=== PATIENT | female | born 1955 | race Caucasian/White ===

== ENCOUNTER 2023-08-12 08:51 | Day surgery (SDC) | payer MEDICARE ==
[2023-08-12] MEDS ORDERED: Epinephrine Preservative Free 1 MG/ML IJ ONE (08:52)
[2023-08-12] MEDS ORDERED: cefUROXime sodium 0.005 GM in Sodium Chloride Flush 30 ML*** 0.5 ML IJ ONE (09:00)
[2023-08-12] MEDS ORDERED: TETRACAINE 0.5% STERI-UNIT SOL OP ONE (09:00)
[2023-08-12] MEDS ORDERED: Ak-Dilate OPHTHALMIC*** 1.065 ML, Cyclogyl 1% OPHTH SOL 1.065 ML, GATIFLOXACIN 0.5% OPH... OP ONE ×4 (09:00)
[2023-08-12] MEDS ORDERED: BETADINE 5% OPHTHALMIC 30 ML OP ONE (09:00)
[2023-08-12] MEDS ORDERED: Lactated Ringers 1,000 ML IV SCH (09:00)
[2023-08-12] MEDS ORDERED: NON-FORMULARY ITEM OP ONE (09:00)
[2023-08-12] MEDS ORDERED: Lactated Ringers 1,000 ML IV ONE (09:27)
[2023-08-12] MEDS: TETRACAINE 0.5% STERI-UNIT SOL OP ONE ×2 (09:53→10:22)
[2023-08-12] MEDS ORDERED: ACETAZOLAMIDE 250 MG TABLET PO ONE (11:00)
[2023-08-12] MEDS ORDERED: Zofran 4 MG/2 ML VIAL IV PRN (11:00)
[2023-08-12] MEDS ORDERED: SUBLIMAZE 100 MCG/2 ML ONE (11:24)
[2023-08-12] MEDS ORDERED: Versed 2 MG/2 ML Injection ONE (11:24)
[2023-08-12] MEDS ORDERED: DIPRIVAN 200 MG/20 ML IV ONE (11:29)
[2023-08-12 11:52] VITALS: RESP 16
[2023-08-12 11:57] VITALS: BP 135/73; PULSE 88; TEMP 99.4; O2SAT 100
== END 2023-08-12 12:06 | disposition home or self-care (01) ==
LOC: SDC 08:51
PROVIDERS: ATTEND Ophthalmology
DX: H25.812 Combined forms of age-related cataract, left eye (principal)
CPT/HCPCS: C1780; J0171; J2250; J2704; J3010; A9270-GY

== ENCOUNTER 2023-09-11 07:18 | Day surgery (SDC) | payer MEDICARE ==
[~2023-09-11 07:18] MED LIST: Ak-Dilate OPHTHALMIC*** 1.065 ML, Cyclogyl 1% OPHTH SOL 1.065 ML, GATIFLOXACIN 0.5% OPH... OP ONE; BETADINE 5% OPHTHALMIC 30 ML OP ONE; Lactated Ringers 1,000 ML IV SCH; NON-FORMULARY ITEM OP ONE; TETRACAINE 0.5% STERI-UNIT SOL OP ONE; cefUROXime sodium 0.005 GM in Sodium Chloride Flush 30 ML*** 0.5 ML IJ ONE
[2023-09-11] MEDS ORDERED: Lactated Ringers 1,000 ML IV ONE (07:32)
[2023-09-11 07:56] VITALS: RESP 18
[2023-09-11] MEDS ORDERED: Epinephrine Preservative Free 1 MG/ML IJ ONE (09:00)
[2023-09-11] MEDS ORDERED: Zofran 4 MG/2 ML VIAL IV PRN (09:00)
[2023-09-11] MEDS ORDERED: ACETAZOLAMIDE 250 MG TABLET PO ONE (09:00)
[2023-09-11] MEDS ORDERED: Versed 2 MG/2 ML Injection ONE (09:57)
[2023-09-11] MEDS ORDERED: SUBLIMAZE 100 MCG/2 ML ONE (09:57)
[2023-09-11] MEDS ORDERED: DIPRIVAN 200 MG/20 ML IV ONE (09:57)
[2023-09-11 10:37] VITALS: TEMP 97; O2SAT 99
[2023-09-11 10:41] VITALS: BP 117/83; PULSE 96
== END 2023-09-11 10:45 | disposition home or self-care (01) ==
LOC: SDC 07:18
PROVIDERS: ATTEND Ophthalmology
DX: H25.811 Combined forms of age-related cataract, right eye (principal)
CPT/HCPCS: C1780; J0171; J2250; J2704; J3010; A9270-GY

== ENCOUNTER 2024-04-21 11:26 | Emergency (ER) | payer MEDICARE ==
--- NOTE | 2024-04-21 11:35 | ERPHSYRPT ---
- History of Present Illness Time Seen by Provider: 04/21/24 11:35 Source: patient, family Exam Limitations: no limitations Physician History: This is a 68-year-old white female patient of Dr. Lang who presents to the emergency department by her spouse via private vehicle with a complaint of intermittent coughing for 3 months and shortness of breath that began yesterday. Patient's power went out and patient has not been able to use her nebulizer machine. Patient has a history of COPD. She is oxygen dependent at 4 L of oxygen via nasal cannula. Her oxygen saturation here in the emergency department on the 4 L is 96 to 97%. She appears in no distress. Patient has a history of gastroesophageal reflux disease. Patient denies chest pain. Patient is a former smoker of cigarettes. She quit smoking cigarettes 13 years ago. Timing/Duration: day(s) (2), worse Severity of Dyspnea-Max: moderate Severity of Dyspnea-Current: moderate Possible Cause: frequent episodes Modifying Factors: Improves With: coughing, oxygen (Improves) Associated Symptoms: cough, No chest pain/discomfort Allergies/Adverse Reactions: No Known Drug Allergies Allergy (Verified 09/11/23 07:42) Home Medications: Omeprazole Magnesium [Prilosec] 20 mg PO DAILY 08/05/23 [History] Albuterol 2.5 mg/3 ml Neb [Proventil 2.5 mg/3 ml Neb] 2.5 mg IH BID 08/12/23 [History] Cetirizine HCl [Zyrtec] 10 mg PO HS 08/12/23 [History] Prednisone 20 mg [Deltasone 20 mg] 20 mg PO DAILY 08/12/23 [History] Albuterol Sulfate 2 mg PO DAILY 04/21/24 [History] Travel Risk - International Travel Have you traveled outside of the country in past 3 weeks: No - Emerging Infectious Disease Are you exhibiting symptoms associated with any current EIDs: Yes Symptoms: Cough: New Onset, Shortness of Breath - Review of Systems Constitutional: No Symptoms Eyes: No Symptoms Ears, Nose, & Throat: No Symptoms Respiratory: Cough, Dyspnea Cardiac: No Symptoms Abdominal/Gastrointestinal: No Symptoms Genitourinary Symptoms: No Symptoms Musculoskeletal: No Symptoms Skin: No Symptoms Neurological: No Symptoms Psychological: No Symptoms Endocrine: No Symptoms Hematologic/Lymphatic: No Symptoms Immunological/Allergic: No Symptoms All Other Systems: Reviewed and Negative - Past Medical History Pertinent Past Medical History: Yes Neurological History: No Pertinent History ENT History: Cataracts Cardiac History: No Pertinent History Respiratory History: COPD Endocrine Medical History: No Pertinent History Musculoskeletal History: No Pertinent History GI Medical History: No Pertinent History History: No Pertinent History Psycho-Social History: No Pertinent History Female Reproductive Disorders: No Pertinent History - Past Surgical History Past Surgical History: Yes Neuro Surgical History: No Pertinent History Cardiac: No Pertinent History Respiratory: No Pertinent History Gastrointestinal: Cholecystectomy Genitourinary: No Pertinent History Musculoskeletal: No Pertinent History Female Surgical History: No Pertinent History - Social History Smoking Status: Former smoker Exposure to second hand smoke: No Drug Use: none - Nursing Vital Signs Nursing Vital Signs: Initial Vital Signs Respiratory Rate 23 04/21/24 11:26 O2 Sat by Pulse Oximetry 96 04/21/24 11:26 Pain Scale Pain Intensity 0 - Physical Exam General Appearance: no apparent distress, alert, anxiety Eye Exam: PERRL/EOMI, eyes nml inspection Ears, Nose, Throat Exam: hearing grossly normal, normal ENT inspection, normal pharynx Neck Exam: normal inspection, non-tender, supple, full range of motion Respiratory Exam: normal breath sounds, lungs clear, airway intact, No chest tenderness, No respiratory distress Cardiovascular/Chest Exam: normal heart sounds, regular rate/rhythm, normal peripheral pulses Abdominal/Gastrointestinal Exam: soft, normal bowel sounds, No tenderness Rectal Exam: not done Extremity Exam: non-tender, normal range of motion, normal inspection, normal capillary refill, no calf tenderness, no pedal edema, pelvis stable Neurologic Exam: alert, oriented x 3, cooperative, pompom maker II-XII nml as tested, normal mood/affect, nml cerebellar function, nml station & gait, sensation nml Skin Exam: normal color, warm, dry Lymphatic Exam: No adenopathy SpO2 Interpretation: normal O2 Delivery: Nasal Cannula (4 L oxygen via nasal cannula. This is her standard level at home) - Course Nursing assessment & vital signs reviewed: Yes EKG Interpreted by Me: RATE (104), Sinus Tach, Right Commerce Deviation (Borderline), NORMAL INTERVALS, NORMAL QRS, Other (No acute ischemic changes on today's twelve-lead EKG. QTc is 452) Ordered Tests: Active Orders 24 hr Category Date Time Status Telecom Sales Consultant STAT Care 04/21/24 11:37 Active EKG-ER Only STAT Care 04/21/24 11:36 Active IV Insertion STAT Care 04/21/24 11:36 Active Oxygen-ED Only Nasal Cannula 4 lpm Care 04/21/24 12:30 Active Pulse Oximetry (ED) STAT Care 04/21/24 11:36 Active CHEST 1 VIEW (PORTABLE) Stat Exams 04/21/24 11:36 Completed BLOOD CULTURE Stat Lab 04/21/24 11:36 Ordered CBC W DIFF Stat Lab 04/21/24 11:36 Completed CMP Stat Lab 04/21/24 11:59 Completed D-DIMER QUANTITATIVE Stat Lab 04/21/24 11:59 Completed Lactic Acid Stat Lab 04/21/24 11:36 Completed MAGNESIUM Stat Lab 04/21/24 11:59 Completed NT PRO BNPII Stat Lab 04/21/24 11:59 Completed PROTIME WITH INR Stat Lab 04/21/24 11:59 Completed TROPONIN Q4H Lab 04/21/24 11:59 Completed TROPONIN Q4H Lab 04/21/24 15:45 Ordered TROPONIN Q4H Lab 04/21/24 19:45 Ordered Respiratory Therapy Assessment DAILY RT 04/21/24 12:54 Active Medication Summary Discontinued Medications Generic Name Dose Route Start Last Admin Trade Name Freq PRN Reason Stop Dose Admin Albuterol/Ipratropium Confirm 04/21/24 12:52 Ipratropium/Albuterol Sulfate 3 Ml Ampul.Neb Administered 04/21/24 12:53 Dose 3 ml IH .STK-MED ONE Albuterol/Ipratropium 3 ml 04/21/24 12:53 04/21/24 12:55 Ipratropium/Albuterol Sulfate 3 Ml Ampul.Neb IH 04/21/24 12:54 3 ml STAT ONE Administration Lab/Rad Data: Laboratory Result Diagrams 04/21/24 11:36 04/21/24 11:59 Laboratory Results 04/21/24 04/21/24 04/21/24 Range/Units 12:15 11:59 11:59 WBC (3.98-10.04) x10^3/uL RBC (3.93-5.22) x10^6/uL Hgb (11.2-15.7) g/dL Hct (34.1-44.9) % MCV (79.4-94.8) fL MCH (25.6-32.2) pg MCHC (32.2-35.5) g/dL RDW (11.7-14.4) % Plt Count (182-369) x10^3/uL MPV (9.4-12.3) fL Gran % (34.0-71.1) % Immature Gran % (Auto) (0.001-0.429) % Nucleat RBC Rel Count (0.00-0.2) % Eos # (Auto) (0.04-0.36) x10^3/uL Immature Gran # (Auto) (0.001-0.031) x10^3u/L Absolute Lymphs (auto) (1.18-3.74) x10^3/uL Absolute Monos (auto) (0.24-0.86) x10^3/uL Absolute Nucleated RBC (0.00-0.012) x10^3u/L Lymphocytes % (19.3-51.7) % Monocytes % (4.7-12.5) % Eosinophils % (0.7-5.8) % Basophils % (0.1-1.2) % Absolute Granulocytes (1.56-6.13) x10^3/uL Basophils # (0.01-0.08) x10^3/uL PT 9.6 (9.4-12.5) SECONDS INR 0.87 (0.8-3.0) D-Dimer 0.41 (0.0-0.50) mg/L Sodium (135-145) mmol/L Potassium (3.5-5.1) mmol/L Chloride (98-107) mmol/L Carbon Dioxide (22-30) mmol/L Anion Gap (5-15) MEQ/L BUN (7-17) mg/dL Creatinine (0.52-1.04) mg/dL Estimated GFR ML/MIN Glucose (74-106) mg/dL Lactic Acid (0.4-2.0) Calcium (8.4-10.2) mg/dL Magnesium (1.6-2.3) mg/dL Total Bilirubin (0.2-1.3) mg/dL AST (14-36) U/L ALT (0-35) U/L Alkaline Phosphatase (38-126) U/L Troponin I < 0.012 (0.000-0.033) ng/mL NT-Pro-B Natriuret Pep (<300) pg/mL Serum Total Protein (6.3-8.2) g/dL Albumin (3.5-5.0) g/dL Influenza Type A Ag NEGATIVE (NEGATIVE) Influenza Type B Ag NEGATIVE (NEGATIVE) RSV (PCR) NEGATIVE (NEGATIVE) SARS-CoV-2 (PCR) NEGATIVE (NEGATIVE) 04/21/24 04/21/24 04/21/24 Range/Units 11:59 11:36 11:36 WBC 15.4 H (3.98-10.04) x10^3/uL RBC 5.08 (3.93-5.22) x10^6/uL Hgb 14.3 (11.2-15.7) g/dL Hct 46.6 H (34.1-44.9) % MCV 91.7 (79.4-94.8) fL MCH 28.1 (25.6-32.2) pg MCHC 30.7 L (32.2-35.5) g/dL RDW 13.0 (11.7-14.4) % Plt Count 305 (182-369) x10^3/uL MPV 9.5 (9.4-12.3) fL Gran % 91.8 H (34.0-71.1) % Immature Gran % (Auto) 0.8 H (0.001-0.429) % Nucleat RBC Rel Count 0.0 (0.00-0.2) % Eos # (Auto) 0.08 (0.04-0.36) x10^3/uL Immature Gran # (Auto) 0.12 H (0.001-0.031) x10^3u/L Absolute Lymphs (auto) 0.62 L (1.18-3.74) x10^3/uL Absolute Monos (auto) 0.36 (0.24-0.86) x10^3/uL Absolute Nucleated RBC 0.00 (0.00-0.012) x10^3u/L Lymphocytes % 4.0 L (19.3-51.7) % Monocytes % 2.3 L (4.7-12.5) % Eosinophils % 0.5 L (0.7-5.8) % Basophils % 0.6 (0.1-1.2) % Absolute Granulocytes 14.09 H (1.56-6.13) x10^3/uL Basophils # 0.09 H (0.01-0.08) x10^3/uL PT (9.4-12.5) SECONDS INR (0.8-3.0) D-Dimer (0.0-0.50) mg/L Sodium 141 (135-145) mmol/L Potassium 3.8 (3.5-5.1) mmol/L Chloride 106 (98-107) mmol/L Carbon Dioxide 31 H (22-30) mmol/L Anion Gap 7.7 (5-15) MEQ/L BUN 20 H (7-17) mg/dL Creatinine 0.73 (0.52-1.04) mg/dL Estimated GFR 89.0 ML/MIN Glucose 160 H (74-106) mg/dL Lactic Acid 1.0 (0.4-2.0) Calcium 9.2 (8.4-10.2) mg/dL Magnesium 2.2 (1.6-2.3) mg/dL Total Bilirubin 0.50 (0.2-1.3) mg/dL AST 26 (14-36) U/L ALT 24 (0-35) U/L Alkaline Phosphatase 65 (38-126) U/L Troponin I (0.000-0.033) ng/mL NT-Pro-B Natriuret Pep 83.9 (<300) pg/mL Serum Total Protein 6.5 (6.3-8.2) g/dL Albumin 3.9 (3.5-5.0) g/dL Influenza Type A Ag (NEGATIVE) Influenza Type B Ag (NEGATIVE) RSV (PCR) (NEGATIVE) SARS-CoV-2 (PCR) (NEGATIVE) - Progress Progress: improved, re-examined Air Movement: good Progress Note: 04/21/24 12:59 My medical decision making and the assignment of moderate complexity to this patient's medical issue today is based on review of the patient's past medical history, review of the patient's medication list, review of the patient drug allergy list, history of present illness and physical findings on examination. The workup in this patient includes placement of intravenous line, CBC, CMP, BNP, D-dimer, troponin level, chest x-ray and RT evaluation and treatment. The differential diagnosis includes but is not limited to COPD exacerbation, CHF, myocardial infarction, arrhythmias, pneumonia, viral illness. 04/21/24 13:24 Interpreted the patient's laboratory data results. Based on the laboratory data results, the patient has COPD exacerbation. There is no other evidence for any acute, emergent medical issue. The chest x-ray was interpreted by the radiologist and I reviewed the impression. The impression states nonacute hyperinflated chest. Blood Culture(s) Obtained: Yes Counseled pt/family regarding: lab results, diagnosis, need for follow-up, rad r esults Medical Desision Making - Independent Historian Additional History obtained from: Spouse - Diagnostic Testing Diagnostic test were ordered, analyzed, and reviewed by me: Yes Radiological Interpretation: Reviewed by me, Teleradiologist Report - Risk of complications The pt has a mod risk of morbidity or mortality based on: Need for prescription drug management - Departure Departure Disposition: Home Clinical Impression: COPD exacerbation Condition: Stable Critical Care Time: No Referrals: ALEX LANG MD [Primary Care Provider] - Follow up/PCP as directed Instructions: Chronic Obstructive Pulmonary Disease Additional Instructions: Drink plenty of clear liquids. Use your nebulizer treatments every 4 hours while awake. Take your steroids as prescribed by me then resume your normal prednisone dosing. Call your primary care provider today, to make arrangements for further evaluation management and to be seen within the next 3 to 5 days. Prescriptions: Prednisone 10 mg [Deltasone 10 mg] 10 mg PO TID #12 tablet
--- NOTE | 2024-04-21 12:00 | XRAY ---
Indication: Short of breath. Comparison: None Portable chest slightly rotated. Right costophrenic angle not completely included. Lungs hyperinflated and clear. Heart not enlarged. Bony thorax intact with osteopenia and minimal degenerative changes. Impression: Nonacute hyperinflated limited chest.
[2024-04-21 12:05] LABS: Absolute Neutrophil Ct (ANC) 14.09 x10^3/uL (1.56-6.13); BASOPHIL % 0.6 % (0.1-1.2); Basophil (Absolute #) 0.09 x10^3/uL (0.01-0.08); Eosinophil % 0.5 % (0.7-5.8); Eosinophil (Absolute #) 0.08 x10^3/uL (0.04-0.36); Hematocrit 46.6 % (34.1-44.9); Hemoglobin 14.3 g/dL (11.2-15.7); IMMATURE GRAN # 0.12 x10^3u/L (0.001-0.031); IMMATURE GRAN % 0.8 % (0.001-0.429); Lymphocyte (Absolute #) 0.62 x10^3/uL (1.18-3.74); Mean Cell Volume 91.7 fL (79.4-94.8); Mean Corpuscular Hemoglobin 28.1 pg (25.6-32.2); Mean Corpuscular Hgb Concent. 30.7 g/dL (32.2-35.5); Mean Platelet Volume 9.5 fL (9.4-12.3); Monocyte (Absolute #) 0.36 x10^3/uL (0.24-0.86); Monocytes % 2.3 % (4.7-12.5); Neutrophil % 91.8 % (34.0-71.1); Platelet Count 305 x10^3/uL (182-369); Red Blood Count 5.08 x10^6/uL (3.93-5.22); White Blood Count 15.4 x10^3/uL (3.98-10.04)
[2024-04-21 12:49] LABS: D-DIMER QUANTITATIVE 0.41 mg/L (0.0-0.50); INR 0.87 (0.8-3.0); PROTIME 9.6 SECONDS (9.4-12.5)
[2024-04-21] MEDS ORDERED: DUONEB 0.5-3 MG/3 ml Neb IH ONE (12:52)
[2024-04-21] MEDS: DUONEB 0.5-3 MG/3 ml Neb IH ONE (12:55)
[2024-04-21 13:08] LABS: ALBUMIN 3.9 g/dL (3.5-5.0); ANION GAP 7.7 MEQ/L (5-15); BILIRUBIN,TOTAL 0.5 mg/dL (0.2-1.3); Calcium 9.2 mg/dL (8.4-10.2); Creatinine 1 0.73 mg/dL (0.52-1.04); MAGNESIUM 2.2 mg/dL (1.6-2.3); NT PRO BNPII 83.9 pg/mL (<300); Potassium 3.8 mmol/L (3.5-5.1); Total Protein 6.5 g/dL (6.3-8.2)
[2024-04-21 13:22] LABS: INFLUENZA A NEGATIVE (NEGATIVE); INFLUENZA B NEGATIVE (NEGATIVE); RESPIRATORY SYNCTIAL VIRUS NEGATIVE (NEGATIVE); SARS-CoV-2 Xpert Express NEGATIVE (NEGATIVE)
[2024-04-21 14:01] VITALS: BP 137/85; PULSE 80; RESP 20; O2SAT 96
== END 2024-04-21 14:00 | disposition home or self-care (01) ==
LOC: ED 11:26
DX: J44.1 Chronic obstructive pulmonary disease with (acute) exacerbation (principal); R05.3 Chronic cough; R06.02 Shortness of breath; Z79.52 Long term (current) use of systemic steroids; Z79.899 Other long term (current) drug therapy; Z99.81 Dependence on supplemental oxygen
CPT/HCPCS: 0241U; 36000; 36415; 71045; 80053; 83605; 83735; 83880; 84484; 85025; 85379; 85610; 93005; 93041; 94640; 94760; 99284; 87040; A9270-GY

== ENCOUNTER 2024-06-23 16:56 | Observation (INO) | payer MEDICARE ==
[2024-06-23] MEDS ORDERED: DUONEB 0.5-3 MG/3 ml Neb IH ONE ×2 (17:08→19:11)
[2024-06-23] MEDS ORDERED: solu-MEDROL ONE ×2 (17:19→23:17)
[2024-06-23] MEDS ORDERED: Sterile H2O 10 ml IJ ONE ×2 (17:19→23:17)
[2024-06-23] MEDS ORDERED: Zithromax 500 MG/ 250 ML NaCl Premix 500 MG/250 ML IVPB IV ONE (17:19)
[2024-06-23] MEDS ORDERED: Sodium Chloride 0.9% 1000 ML 1,000 ML ONE (17:19)
[2024-06-23] MEDS: Sodium Chloride 0.9% 1000 ML 1,000 ML IV STA (17:22)
[2024-06-23] MEDS: solu-MEDROL 125 MG, Sterile H2O 10 ml 2 ML IV ONE (17:23)
[2024-06-23] MEDS: Zithromax 500 MG/ 250 ML NaCl Premix 500 MG/250 ML IVPB IV STA (17:23)
[2024-06-23 17:25] LABS: A-aADO2 63; ABG HEMOGLOBIN 14.4; ABG POTASSIUM 4.9 (3.5-5.1); ARTERIAL BLD GAS O2 SATURATION 99.5 % (95-100); ARTERIAL BLOOD GAS BASE EXCESS 7.9 (-2.0-2.0); ARTERIAL BLOOD GAS FIO2 36 %; ARTERIAL BLOOD GAS PCO2 51 mmHg (35-45); ARTERIAL BLOOD GAS PO2 130 mmHg (75-100); ARTERIAL BLOOD GAS pH 7.43 (7.35-7.45); CARBOXYHEMOGLOBIN 0.7 % THgb (0.0-6.9); HCO3- 33.9 (22-28); HGB O2 SAT 97.4 g/dF (94-100); Methhemoglobin 1.5 % (1.4-1.5); paO2 pAO1 0.67
[2024-06-23 17:26] LABS: ABG SITE LEFT BRACHIAL
[2024-06-23] MEDS: DUONEB 0.5-3 MG/3 ml Neb IH ONE ×2 (17:26→19:14)
[2024-06-23 17:29] LABS: Absolute Neutrophil Ct (ANC) 8.62 x10^3/uL (1.56-6.13); BASOPHIL % 0.7 % (0.1-1.2); Basophil (Absolute #) 0.07 x10^3/uL (0.01-0.08); Eosinophil % 0.6 % (0.7-5.8); Eosinophil (Absolute #) 0.06 x10^3/uL (0.04-0.36); Hematocrit 46.3 % (34.1-44.9); Hemoglobin 14.3 g/dL (11.2-15.7); IMMATURE GRAN # 0.05 x10^3u/L (0.001-0.031); IMMATURE GRAN % 0.5 % (0.001-0.429); Lymphocyte (Absolute #) 1.06 x10^3/uL (1.18-3.74); Mean Corpuscular Hemoglobin 28.4 pg (25.6-32.2); Mean Corpuscular Hgb Concent. 30.9 g/dL (32.2-35.5); Mean Platelet Volume 9.4 fL (9.4-12.3); Monocyte (Absolute #) 0.72 x10^3/uL (0.24-0.86); Monocytes % 6.8 % (4.7-12.5); Neutrophil % 81.4 % (34.0-71.1); Platelet Count 357 x10^3/uL (182-369); Red Blood Count 5.03 x10^6/uL (3.93-5.22); Red Cell Distribution Width 12.8 % (11.7-14.4); White Blood Count 10.6 x10^3/uL (3.98-10.04)
--- NOTE | 2024-06-23 17:32 | ERPHSYRPT ---
- History of Present Illness Source: patient Exam Limitations: no limitations Patient Subjective Stated Complaint: SOB Triage Nursing Assessment: Patient brought into ED per w/c and transferred to bed with assist of 1. Patient wearing home O2 at 4 liters per N/C. Patient has increased work of breathing. Patient's skin pink, warm and dry. Patient states she has had increased SOB today that just keeps getting worse. Patient complains of nasal congestion and states she can't breath good out of her nose. Patient placed on Oxymask at 4 liters per N/C and patient tolerating better. Patient denies pain or discomfort. Patient states she is a productive cough with white mucus. Lungs noted to be diminished throughout. Hx Tetanus, Diphtheria Vaccination/Date Given: No Hx Influenza Vaccination/Date Given: No Hx Pneumococcal Vaccination/Date Given: No Immunizations Up to Date: Yes <OLI FELIPE - Last Filed: 06/23/24 18:41> <LANIE MONTGOMERY - Last Filed: 06/23/24 20:57> - History of Present Illness Time Seen by Provider: 06/23/24 17:05 Physician History: Patient is here for shortness of breath, increased work of breathing. Patient does have a history of COPD. Patient states that earlier today she started feeling short of breath, wheezing. Feels "off. Patient has tried home albuterol. Still wheezing. Patient typically wears 4 L of oxygen at home. Patient currently on oxime mask, 4 L feels "clogged up". No one else has been sick at home, no fever here. Is tachycardic however this could be due to albuterol treatment, stable blood pressure at this point in time. (OLI FELIPE) Allergies/Adverse Reactions: No Known Drug Allergies Allergy (Verified 06/23/24 16:57) Home Medications: Omeprazole Magnesium [Prilosec] 20 mg PO DAILY 08/05/23 [History] Albuterol 2.5 mg/3 ml Neb [Proventil 2.5 mg/3 ml Neb] 2.5 mg IH BID 08/12/23 [History] Cetirizine HCl [Zyrtec] 10 mg PO HS 08/12/23 [History] Prednisone 20 mg [Deltasone 20 mg] 20 mg PO DAILY 08/12/23 [History] Albuterol Sulfate 2 mg PO BID 04/21/24 [History] Travel Risk - International Travel Have you traveled outside of the country in past 3 weeks: No - Emerging Infectious Disease Are you exhibiting symptoms associated with any current EIDs: No Symptoms: Cough: New Onset, Shortness of Breath <OLI FELIPE - Last Filed: 06/23/24 18:41> - Past Medical History Pertinent Past Medical History: Yes Neurological History: No Pertinent History ENT History: Cataracts Cardiac History: No Pertinent History Respiratory History: COPD Endocrine Medical History: No Pertinent History Musculoskeletal History: No Pertinent History GI Medical History: No Pertinent History History: No Pertinent History Psycho-Social History: No Pertinent History Female Reproductive Disorders: No Pertinent History - Past Surgical History Past Surgical History: Yes Neuro Surgical History: No Pertinent History Cardiac: No Pertinent History Respiratory: No Pertinent History Gastrointestinal: Cholecystectomy Genitourinary: No Pertinent History Musculoskeletal: No Pertinent History Female Surgical History: No Pertinent History - Social History Smoking Status: Former smoker Exposure to second hand smoke: No Drug Use: none - Social Determinants of Health Will the patient participate in the screening: Yes Do you worry about a steady place to live?: No Do you have any problems with any of the following?: No known problems In the past 12 months,have you had to go without utilities?: No Transportation Issues: No Has anyone in your support network made you feel unsafe?: No Have you or anyone in your house had to go without enough: No <OLI FELIPE - Last Filed: 06/23/24 18:41> - Physical Exam SpO2 Interpretation: normal SpO2: 90 <OLI FELIPE - Last Filed: 06/23/24 18:41> - Nursing Vital Signs Nursing Vital Signs: Initial Vital Signs Pulse Rate 109 H 06/23/24 17:04 Respiratory Rate 16 06/23/24 17:04 Blood Pressure 187/93 06/23/24 17:04 O2 Sat by Pulse Oximetry 99 06/23/24 17:04 Pain Scale Pain Intensity 0 - Physical Exam Comments: 06/23/24 17:30 Review of Systems Constitutional: Negative for fever. HENT: Negative for congestion. Respiratory: Shortness of breath, wheezing, increased work of breathing Cardiovascular: Negative for chest pain. Gastrointestinal: Negative for abdominal pain. Genitourinary: Negative for dysuria. Musculoskeletal: Negative for back pain. Skin: Negative for rash. Neurological: Negative for headaches. Psychiatric/Behavioral: Negative for behavioral problems. All other systems reviewed and are negative. Physical Exam Vitals signs and nursing note reviewed. Constitutional: Appearance: Patient is well-developed. HENT: Head: Normocephalic and atraumatic. Eyes: Conjunctiva/sclera: Conjunctivae normal. Neck: Musculoskeletal: Normal range of motion. Trachea: No tracheal deviation. Cardiovascular: Rate and Rhythm: Normal rate. Pulmonary: Effort: Visibly short of breath, increased work of breathing, wheezing in all lung cortes Abdominal: Palpations: Abdomen is soft. Musculoskeletal: General: No deformity. Skin: General: Skin is warm and dry. Neurological/ Psychiatric: Mental Status: Mental status, behavior, interaction with environment is a ppropriate for patient's age and condition (OLI FELIPE) - Course Nursing assessment & vital signs reviewed: Yes EKG Interpreted by Me: Sinus Rhythm <OLI FELIPE - Last Filed: 06/23/24 18:41> - CT Exams Chest CT Interpretation: Tele-radiologist Report (No PE. Left upper lobe spiculated density, emphysema) <LANIE MONTGOMERY - Last Filed: 06/23/24 20:57> Ordered Tests: Active Orders 24 hr Category Date Time Status Citizen Participation Specialist STAT Care 06/23/24 17:12 Active EKG-ER Only STAT Care 06/23/24 17:12 Active IV Insertion STAT Care 06/23/24 17:12 Active IV Insertion-2nd Peripheral STAT Care 06/23/24 17:15 Active CHEST 1 VIEW (PORTABLE) Stat Exams 06/23/24 17:12 Taken CHEST WITH CONTRAST [CT] Stat Exams 06/23/24 18:28 Taken ABG [ARTERIAL BLOOD GASES] Stat Lab 06/23/24 17:18 Completed BLOOD CULTURE Stat Lab 06/23/24 17:00 Received CBC W DIFF Stat Lab 06/23/24 17:00 Completed CMP Stat Lab 06/23/24 17:00 Completed D-DIMER QUANTITATIVE Stat Lab 06/23/24 17:00 Completed NT PRO BNPII Stat Lab 06/23/24 17:00 Completed TROPONIN Q4H Lab 06/23/24 17:00 Completed TROPONIN Q4H Lab 06/23/24 21:15 Ordered TROPONIN Q4H Lab 06/24/24 01:15 Ordered Transfer Order Routine Transfer 06/23/24 Ordered Medication Summary Generic Name Dose Route Start Last Admin Trade Name Marcella PRN Reason Stop Dose Admin Ceftriaxone Sodium 2 gm in 100 mls @ 200 mls/hr 06/23/24 20:32 06/23/24 20:35 Rocephin 2 Gm/100 Ml Nacl IV 06/23/24 21:01 200 ml/hr STAT ONE 200 mls/hr Administration Discontinued Medications Generic Name Dose Route Start Last Admin Trade Name Marcella PRN Reason Stop Dose Admin Albuterol/Ipratropium Confirm 06/23/24 17:08 Ipratropium/Albuterol Sulfate 3 Ml Ampul.Neb Administered 06/23/24 17:09 Dose 3 ml IH .STK-MED ONE Albuterol/Ipratropium 3 ml 06/23/24 17:12 06/23/24 17:26 Ipratropium/Albuterol Sulfate 3 Ml Ampul.Neb 06/23/24 17:13 3 ml STAT ONE Administration Albuterol/Ipratropium 3 ml 06/23/24 18:42 06/23/24 19:14 Ipratropium/Albuterol Sulfate 3 Ml Ampul.Neb IH 06/23/24 18:43 3 ml STAT ONE Administration Albuterol/Ipratropium Confirm 06/23/24 19:11 Ipratropium/Albuterol Sulfate 3 Ml Ampul.Neb Administered 06/23/24 19:12 Dose 3 ml IH .STK-MED ONE Methylprednisolone Sodium 0 mg 06/23/24 17:12 06/23/24 17:23 Succinate 125 mg/ Sterile IV 06/23/24 17:13 125 mg Water 2 ml STAT ONE Administration Sodium Chloride 1,000 mls @ 999 mls/hr 06/23/24 17:12 06/23/24 18:39 Sodium Chloride 0.9% 1000 Ml IV 06/23/24 18:12 Infused .Q1H1M STA Infusion Azithromycin 500 mg in 250 mls @ 250 mls/hr 06/23/24 17:12 06/23/24 18:39 Zithromax 500 Mg/ 250 Ml Nacl Premix IV 06/23/24 18:11 Infused STAT STA Infusion Azithromycin Confirm 06/23/24 17:19 Zithromax 500 Mg/ 250 Ml Nacl Premix Administered 06/23/24 17:20 Dose 500 mg in 250 mls @ ud IV .STK-MED ONE Sodium Chloride Confirm 06/23/24 17:19 Sodium Chloride 0.9% 1000 Ml Administered 06/23/24 17:20 Dose 1,000 mls @ ud .ROUTE .STK-MED ONE Ceftriaxone Sodium Confirm 06/23/24 20:33 Rocephin 2 Gm/100 Ml Nacl Administered 06/23/24 20:34 Dose 2 gm in 100 mls @ ud IV .STK-MED ONE Methylprednisolone Sodium Succinate Confirm 06/23/24 17:19 Methylprednis Sod Succ 125 Mg/2 Ml Vial Administered 06/23/24 17:20 Dose 125 mg .ROUTE .STK-MED ONE Sterile Water Confirm 06/23/24 17:19 Water For Injection,Sterile 10 Ml Vial Administered 06/23/24 17:20 Dose 10 ml IJ .STK-MED ONE Lab/Rad Data: Laboratory Result Diagrams 06/23/24 17:00 06/23/24 17:00 Laboratory Results 06/23/24 06/23/24 06/23/24 Range/Units 17:42 17:18 17:00 WBC (3.98-10.04) x10^3/uL RBC (3.93-5.22) x10^6/uL Hgb (11.2-15.7) g/dL Hct (34.1-44.9) % MCV (79.4-94.8) fL MCH (25.6-32.2) pg MCHC (32.2-35.5) g/dL RDW (11.7-14.4) % Plt Count (182-369) x10^3/uL MPV (9.4-12.3) fL Gran % (34.0-71.1) % Immature Gran % (Auto) (0.001-0.429) % Nucleat RBC Rel Count (0.00-0.2) % Eos # (Auto) (0.04-0.36) x10^3/uL Immature Gran # (Auto) (0.001-0.031) x10^3u/L Absolute Lymphs (auto) (1.18-3.74) x10^3/uL Absolute Monos (auto) (0.24-0.86) x10^3/uL Absolute Nucleated RBC (0.00-0.012) x10^3u/L Lymphocytes % (19.3-51.7) % Monocytes % (4.7-12.5) % Eosinophils % (0.7-5.8) % Basophils % (0.1-1.2) % Absolute Granulocytes (1.56-6.13) x10^3/uL Basophils # (0.01-0.08) x10^3/uL D-Dimer (0.0-0.50) mg/L Puncture Site LEFT BRACHIAL pCO2 51 H (35-45) mmHg pO2 130 H* (75-100) mmHg Base Excess 7.9 H (-2.0-2.0) O2 Saturation 97.4 (94-100) g/dF ABG pH 7.43 (7.35-7.45) ABG HCO3 33.9 H* (22-28) ABG O2 Sat (Measured) 99.5 (95-100) % Kana Test NOT APPLICABLE A-a Gradient 63 a/A Ratio 0.67 Hemoglobin 14.4 Carboxyhemoglobin 0.7 (0.0-6.9) % THgb Methemoglobin 1.5 (1.4-1.5) % Temperature 37.0 C POC O2 Flow Rate 36 % Sodium (135-145) mmol/L Potassium 4.9 (3.5-5.1) mmol/L Chloride (98-107) mmol/L Carbon Dioxide (22-30) mmol/L Anion Gap (5-15) MEQ/L BUN (7-17) mg/dL Creatinine (0.52-1.04) mg/dL Estimated GFR ML/MIN Glucose (74-106) mg/dL Calcium (8.4-10.2) mg/dL Total Bilirubin (0.2-1.3) mg/dL AST (14-36) U/L ALT (0-35) U/L Alkaline Phosphatase (38-126) U/L Troponin I < 0.012 (0.000-0.033) ng/mL NT-Pro-B Natriuret Pep 57.8 (<300) pg/mL Serum Total Protein (6.3-8.2) g/dL Albumin (3.5-5.0) g/dL Influenza Type A Ag NEGATIVE (NEGATIVE) Influenza Type B Ag NEGATIVE (NEGATIVE) RSV (PCR) NEGATIVE (NEGATIVE) SARS-CoV-2 (PCR) NEGATIVE (NEGATIVE) 06/23/24 06/23/24 06/23/24 Range/Units 17:00 17:00 17:00 WBC 10.6 H (3.98-10.04) x10^3/uL RBC 5.03 (3.93-5.22) x10^6/uL Hgb 14.3 (11.2-15.7) g/dL Hct 46.3 H (34.1-44.9) % MCV 92.0 (79.4-94.8) fL MCH 28.4 (25.6-32.2) pg MCHC 30.9 L (32.2-35.5) g/dL RDW 12.8 (11.7-14.4) % Plt Count 357 (182-369) x10^3/uL MPV 9.4 (9.4-12.3) fL Gran % 81.4 H (34.0-71.1) % Immature Gran % (Auto) 0.5 H (0.001-0.429) % Nucleat RBC Rel Count 0.0 (0.00-0.2) % Eos # (Auto) 0.06 (0.04-0.36) x10^3/uL Immature Gran # (Auto) 0.05 H (0.001-0.031) x10^3u/L Absolute Lymphs (auto) 1.06 L (1.18-3.74) x10^3/uL Absolute Monos (auto) 0.72 (0.24-0.86) x10^3/uL Absolute Nucleated RBC 0.00 (0.00-0.012) x10^3u/L Lymphocytes % 10.0 L (19.3-51.7) % Monocytes % 6.8 (4.7-12.5) % Eosinophils % 0.6 L (0.7-5.8) % Basophils % 0.7 (0.1-1.2) % Absolute Granulocytes 8.62 H (1.56-6.13) x10^3/uL Basophils # 0.07 (0.01-0.08) x10^3/uL D-Dimer 0.82 H* (0.0-0.50) mg/L Puncture Site pCO2 (35-45) mmHg pO2 (75-100) mmHg Base Excess (-2.0-2.0) O2 Saturation (94-100) g/dF ABG pH (7.35-7.45) ABG HCO3 (22-28) ABG O2 Sat (Measured) (95-100) % Kana Test A-a Gradient a/A Ratio Hemoglobin Carboxyhemoglobin (0.0-6.9) % THgb Methemoglobin (1.4-1.5) % Temperature C POC O2 Flow Rate % Sodium 143 (135-145) mmol/L Potassium 4.9 (3.5-5.1) mmol/L Chloride 103 (98-107) mmol/L Carbon Dioxide 31 H (22-30) mmol/L Anion Gap 13.8 (5-15) MEQ/L BUN 20 H (7-17) mg/dL Creatinine 0.75 (0.52-1.04) mg/dL Estimated GFR 86.1 ML/MIN Glucose 138 H (74-106) mg/dL Calcium 10.0 (8.4-10.2) mg/dL Total Bilirubin 0.20 (0.2-1.3) mg/dL AST 31 (14-36) U/L ALT 33 (0-35) U/L Alkaline Phosphatase 83 (38-126) U/L Troponin I (0.000-0.033) ng/mL NT-Pro-B Natriuret Pep (<300) pg/mL Serum Total Protein 6.7 (6.3-8.2) g/dL Albumin 4.2 (3.5-5.0) g/dL Influenza Type A Ag (NEGATIVE) Influenza Type B Ag (NEGATIVE) RSV (PCR) (NEGATIVE) SARS-CoV-2 (PCR) (NEGATIVE) - Progress Progress: improved Counseled pt/family regarding: lab results, diagnosis, need for follow-up, rad results <OLI FELIPE - Last Filed: 06/23/24 18:41> <LANIE MONTGOMERY - Last Filed: 06/23/24 20:57> - Progress Progress Note: 06/23/24 17:31 Differential diagnosis includes: PNA, STEMI, NSTEMI, other infection, musculoske letal pain, pneumothorax - We'll obtain basic labs, fluids, EKG, troponin, chest x-ray - EKG shows no ST changes - my read - O2 saturations consistently greater than 90% on 4 L oxy mask 06/23/24 18:41 Chest x-ray shows likely right lower lobe pneumonia. Patient does look slightly improved with breathing treatment here. Patient was given first dose of azithromycin tonight, steroids, other medications as above. D-dimer did return elevated. Therefore we will obtain a CTA of the chest looking for pulmonary embolism. This can also better visualize her right lower lobe pneumonia. Transfer of care to Dr. Montgomery at 7 PM. He will follow-up on all labs, imaging, reexamine patient. Disposition per Dr. Montgomery and reilly. (OIL FELIPE) 68-year-old female history of COPD presents to our ED shortness of breath hypoxia. Per previous physician patient has right lower lobe pneumonia. Antibiotics infused. Steroids administered. CTA chest negative for PE. Plan of care discussed with patient. Patient agrees to admission [facility] for further evaluation and treatment. Portions of this note were created with voice recognition technology. There may be grammatical, spelling, punctuation or sound alike errors Complexity problem addressed is moderate acute complicated. No critical care time. Complex of data reviewed and analyzed is extensive. Test ordered chest reviewed results analyzed and correlated clinically with history and physical exam. Management discussed with hospital to except admission to observation. Dr. Ayala accepts admission at8:43pm. Risk of complication and or risk of morbidity/mortality patient management is high. Patient requires hospitalization for further evaluation and treatment. Vital stable. Time spent admit patient approximately 20 minutes. Plan of care established for shared decision making. No social determinants of health present impede follow-up. Portions of this note were created with voice recognition technology. There may be grammatical, spelling, punctuation or sound alike errors 06/23/24 20:54 06/23/24 20:54 (LANIE MONTGOMERY) - Departure Critical Care Time: No <OLI FELIPE - Last Filed: 06/23/24 18:41> - Departure Departure Disposition: Observation <LANIE MONTGOMERY - Last Filed: 06/23/24 20:57> - Departure Clinical Impression: COPD exacerbation, Shortness of breath, Left lung spiculated density, Emphysema lung, Pneumonia Condition: Stable Referrals: ALEX LANG MD [Primary Care Provider] - Follow up/PCP as directed Instructions: Chronic Obstructive Pulmonary Disease
[2024-06-23 17:41] LABS: ALBUMIN 4.2 g/dL (3.5-5.0); ANION GAP 13.8 MEQ/L (5-15); BILIRUBIN,TOTAL 0.2 mg/dL (0.2-1.3); Creatinine 1 0.75 mg/dL (0.52-1.04); EST GLOMERULAR FILTRATION RATE 86.1 ML/MIN; Potassium 4.9 mmol/L (3.5-5.1); Total Protein 6.7 g/dL (6.3-8.2)
[2024-06-23 18:06] LABS: NT PRO BNPII 57.8 pg/mL (<300); TROPONIN < 0.012 ng/mL (0.000-0.033)
[2024-06-23 18:25] LABS: INFLUENZA A NEGATIVE (NEGATIVE); INFLUENZA B NEGATIVE (NEGATIVE); RESPIRATORY SYNCTIAL VIRUS NEGATIVE (NEGATIVE); SARS-CoV-2 Xpert Express NEGATIVE (NEGATIVE)
[2024-06-23] MEDS ORDERED: ROCEPHIN 2 GM/100 ML NACL 2 GM/100 ML IVPB IV ONE (20:33)
[2024-06-23] MEDS: ROCEPHIN 2 GM/100 ML NACL 2 GM/100 ML IVPB IV ONE (20:35)
[2024-06-23] MEDS ORDERED: TYLENOL 325 MG PO PRN (22:36)
[2024-06-23] MEDS ORDERED: Docusate Sodium 100 MG PO PRN (22:36)
[2024-06-23] MEDS ORDERED: Zofran 4 MG/2 ML VIAL IV PRN (22:36)
[2024-06-23] MEDS ORDERED: MILK OF MAGNESIA 30 ML PO PRN (22:36)
[2024-06-23] MEDS ORDERED: CLARITIN 10 MG ONE (23:17)
[2024-06-23] MEDS: CLARITIN 10 MG PO SCH (23:18)
[2024-06-23] MEDS: solu-MEDROL 40 MG, Sterile H2O 10 ml 1 ML IV SCH (23:18)
--- NOTE | 2024-06-23 23:18 | PCM.HP ---
History of Present Illness - Chief Complaint Chief Complaint: COPD exacerbation, hypoxia Date: 06/23/24 History of Present Illness: is a 68 year old female with a history of COPD (follows with Dr. Hughes, and is on continuous 4 LPM O2) who presents to the hospital with dyspnea, shortness of breath and cough which had been worsening over the course of the day. The cough has been productive of white sputum. She denied chest pain. In the ED, the patient had a negative CTA chest for PE and infiltrate, but was noted to have diminished breath sounds consistent with a COPD exacerbation. She was initially placed on an Oxymask at 4 LPM. At the time of my evaluation, the patient's symptoms have slightly improved after treatment initiation. - Review of Systems Constitutional: No Symptoms Eyes: No Symptoms Ears, Nose, & Throat: No Symptoms Respiratory: Cough, Short Of Breath, Wheezing Cardiac: No Symptoms Abdominal/Gastrointestinal: No Symptoms Genitourinary Symptoms: No Symptoms Musculoskeletal: No Symptoms Skin: No Symptoms Neurological: No Symptoms Psychological: No Symptoms Endocrine: No Symptoms Hematologic/Lymphatic: No Symptoms Immunological/Allergic: No Symptoms All Other Systems: Reviewed and Negative Medications & Allergies Home Medications: Home Medication List Omeprazole Magnesium [Prilosec] 20 mg PO DAILY 08/05/23 [History Confirmed 06/23/24] Albuterol 2.5 mg/3 ml Neb [Proventil 2.5 mg/3 ml Neb] 2.5 mg IH BID 08/12/23 [History Confirmed 06/23/24] Cetirizine HCl [Zyrtec] 10 mg PO HS 08/12/23 [History Confirmed 06/23/24] Prednisone 20 mg [Deltasone 20 mg] 20 mg PO DAILY 08/12/23 [History Confirmed 06/23/24] Albuterol Sulfate 2 mg PO BID 04/21/24 [History Confirmed 06/23/24] Allergies/Adverse Reactions: Allergies Allergy/AdvReac Type Severity Reaction Status Date / Time No Known Drug Allergies Allergy Verified 06/23/24 16:57 - Past Medical History Past Medical History: Yes Neurological History: No Pertinent History ENT History: Cataracts Cardiac History: No Pertinent History Respiratory History: COPD Endocrine Medical History: No Pertinent History Musculoskelatal History: No Pertinent History GI Medical History: No Pertinent History History: No Pertinent History Pyscho-Social History: No Pertinent History Reproductive Disorders: No Pertinent History - Past Surgical History Past Surgical History: Yes Neuro Surgical History: No Pertinent History Cardiac History: No Pertinent History Respiratory Surgery: No Pertinent History GI Surgical History: Cholecystectomy Genitourinary Surgical Hx: No Pertinent History Musculskeletal Surgical Hx: No Pertinent History Female Surgical History: No Pertinent History - Social History Smoking Status: Former smoker Exposure to second hand smoke: No Alcohol: None Drug Use: none - Social Determinants of Health Will the patient participate in the screening: Yes Do you worry about a steady place to live?: No Do you have any problems with any of the following?: No known problems In the past 12 months,have you had to go without utilities?: No Have you or anyone in your house had to go without enough: No Transportation Issues: No Has anyone in your support network made you feel unsafe?: No Does the patient want assistance with any of the above?: No - Physical Exam Vital Signs: Vital Signs - 24 hr Temp Pulse Resp BP BP Pulse Ox 06/23/24 22:00 99 H 18 98 06/23/24 21:09 97.5 F 109 H 22 163/90 98 06/23/24 20:00 112 H 22 159/94 97 06/23/24 19:30 113 H 24 159/78 97 06/23/24 19:14 114 H 20 97 06/23/24 19:05 114 H 20 146/94 100 06/23/24 18:42 90 L 06/23/24 18:00 114 H 22 142/88 98 06/23/24 17:30 117 H 22 151/87 98 06/23/24 17:29 111 H 24 97 06/23/24 17:07 98.4 F 120 H 35 H 187/93 90 L 06/23/24 17:04 109 H 16 187/93 98 General Appearance: no apparent distress, alert Neurologic Exam: alert, oriented x 3, cooperative, 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, normal mood/affect, nml cerebellar function Eye Exam: PERRL/EOMI, eyes nml inspection Ears, Nose, Throat Exam: normal ENT inspection Neck Exam: normal inspection, non-tender, supple, full range of motion Respiratory Exam: diminished breath sounds, wheezing Cardiovascular Exam: regular rate/rhythm, normal heart sounds Gastrointestinal/Abdomen Exam: soft Back Exam: normal range of motion Extremity Exam: normal inspection, normal range of motion Skin Exam: normal color Results - Labs Lab/Micro Results: Lab Results-Last 24 Hours 06/23/24 06/23/24 06/23/24 Range/Units 17:00 17:00 17:00 WBC 10.6 H (3.98-10.04) x10^3/uL RBC 5.03 (3.93-5.22) x10^6/uL Hgb 14.3 (11.2-15.7) g/dL Hct 46.3 H (34.1-44.9) % MCV 92.0 (79.4-94.8) fL MCH 28.4 (25.6-32.2) pg MCHC 30.9 L (32.2-35.5) g/dL RDW 12.8 (11.7-14.4) % Plt Count 357 (182-369) x10^3/uL MPV 9.4 (9.4-12.3) fL Gran % 81.4 H (34.0-71.1) % Immature Gran % (Auto) 0.5 H (0.001-0.429) % Nucleat RBC Rel Count 0.0 (0.00-0.2) % Eos # (Auto) 0.06 (0.04-0.36) x10^3/uL Immature Gran # (Auto) 0.05 H (0.001-0.031) x10^3u/L Absolute Lymphs (auto) 1.06 L (1.18-3.74) x10^3/uL Absolute Monos (auto) 0.72 (0.24-0.86) x10^3/uL Absolute Nucleated RBC 0.00 (0.00-0.012) x10^3u/L Lymphocytes % 10.0 L (19.3-51.7) % Monocytes % 6.8 (4.7-12.5) % Eosinophils % 0.6 L (0.7-5.8) % Basophils % 0.7 (0.1-1.2) % Absolute Granulocytes 8.62 H (1.56-6.13) x10^3/uL Basophils # 0.07 (0.01-0.08) x10^3/uL D-Dimer 0.82 H* (0.0-0.50) mg/L Puncture Site pCO2 (35-45) mmHg pO2 (75-100) mmHg Base Excess (-2.0-2.0) O2 Saturation (94-100) g/dF ABG pH (7.35-7.45) ABG HCO3 (22-28) ABG O2 Sat (Measured) (95-100) % Kana Test A-a Gradient a/A Ratio Hemoglobin Carboxyhemoglobin (0.0-6.9) % THgb Methemoglobin (1.4-1.5) % Temperature C POC O2 Flow Rate % Sodium 143 (135-145) mmol/L Potassium 4.9 (3.5-5.1) mmol/L Chloride 103 (98-107) mmol/L Carbon Dioxide 31 H (22-30) mmol/L Anion Gap 13.8 (5-15) MEQ/L BUN 20 H (7-17) mg/dL Creatinine 0.75 (0.52-1.04) mg/dL Estimated GFR 86.1 ML/MIN Glucose 138 H (74-106) mg/dL Calcium 10.0 (8.4-10.2) mg/dL Total Bilirubin 0.20 (0.2-1.3) mg/dL AST 31 (14-36) U/L ALT 33 (0-35) U/L Alkaline Phosphatase 83 (38-126) U/L Troponin I (0.000-0.033) ng/mL NT-Pro-B Natriuret Pep (<300) pg/mL Serum Total Protein 6.7 (6.3-8.2) g/dL Albumin 4.2 (3.5-5.0) g/dL Influenza Type A Ag (NEGATIVE) Influenza Type B Ag (NEGATIVE) RSV (PCR) (NEGATIVE) SARS-CoV-2 (PCR) (NEGATIVE) 06/23/24 06/23/24 06/23/24 Range/Units 17:00 17:18 17:42 WBC (3.98-10.04) x10^3/uL RBC (3.93-5.22) x10^6/uL Hgb (11.2-15.7) g/dL Hct (34.1-44.9) % MCV (79.4-94.8) fL MCH (25.6-32.2) pg MCHC (32.2-35.5) g/dL RDW (11.7-14.4) % Plt Count (182-369) x10^3/uL MPV (9.4-12.3) fL Gran % (34.0-71.1) % Immature Gran % (Auto) (0.001-0.429) % Nucleat RBC Rel Count (0.00-0.2) % Eos # (Auto) (0.04-0.36) x10^3/uL Immature Gran # (Auto) (0.001-0.031) x10^3u/L Absolute Lymphs (auto) (1.18-3.74) x10^3/uL Absolute Monos (auto) (0.24-0.86) x10^3/uL Absolute Nucleated RBC (0.00-0.012) x10^3u/L Lymphocytes % (19.3-51.7) % Monocytes % (4.7-12.5) % Eosinophils % (0.7-5.8) % Basophils % (0.1-1.2) % Absolute Granulocytes (1.56-6.13) x10^3/uL Basophils # (0.01-0.08) x10^3/uL D-Dimer (0.0-0.50) mg/L Puncture Site LEFT BRACHIAL pCO2 51 H (35-45) mmHg pO2 130 H* (75-100) mmHg Base Excess 7.9 H (-2.0-2.0) O2 Saturation 97.4 (94-100) g/dF ABG pH 7.43 (7.35-7.45) ABG HCO3 33.9 H* (22-28) ABG O2 Sat (Measured) 99.5 (95-100) % Kana Test NOT APPLICABLE A-a Gradient 63 a/A Ratio 0.67 Hemoglobin 14.4 Carboxyhemoglobin 0.7 (0.0-6.9) % THgb Methemoglobin 1.5 (1.4-1.5) % Temperature 37.0 C POC O2 Flow Rate 36 % Sodium (135-145) mmol/L Potassium 4.9 (3.5-5.1) mmol/L Chloride (98-107) mmol/L Carbon Dioxide (22-30) mmol/L Anion Gap (5-15) MEQ/L BUN (7-17) mg/dL Creatinine (0.52-1.04) mg/dL Estimated GFR ML/MIN Glucose (74-106) mg/dL Calcium (8.4-10.2) mg/dL Total Bilirubin (0.2-1.3) mg/dL AST (14-36) U/L ALT (0-35) U/L Alkaline Phosphatase (38-126) U/L Troponin I < 0.012 (0.000-0.033) ng/mL NT-Pro-B Natriuret Pep 57.8 (<300) pg/mL Serum Total Protein (6.3-8.2) g/dL Albumin (3.5-5.0) g/dL Influenza Type A Ag NEGATIVE (NEGATIVE) Influenza Type B Ag NEGATIVE (NEGATIVE) RSV (PCR) NEGATIVE (NEGATIVE) SARS-CoV-2 (PCR) NEGATIVE (NEGATIVE) - Radiology Impressions Radiology Exams & Impressions: Radiology Procedures Category Date Time Status CHEST 1 VIEW (PORTABLE) Stat Exams 06/23/24 17:12 Taken CHEST WITH CONTRAST [CT] Stat Exams 06/23/24 18:28 Taken - Other Procedures and Tests Respiratory Therapy 06/23/24 22:11 Oxygen Nasal Cannula 4 lpm 06/23/24 22:12 Incentive Spirometry UD Assessment/Plan (1) COPD exacerbation Current Visit: Yes Status: Acute Assessment & Plan: IV steroids, IV antibiotics for probable acute bronchitis, nebs. Continue O2 support. Code(s): J44.1 - CHRONIC OBSTRUCTIVE PULMONARY DISEASE W (ACUTE) EXACERBATION (2) Cough Current Visit: Yes Status: Acute Assessment & Plan: Antibiotics and Mucinex. Code(s): R05.9 - COUGH, UNSPECIFIED (3) Leukocytosis Current Visit: Yes Status: Acute Assessment & Plan: On antibiotics. Probable acute bronchitis. Code(s): D72.829 - ELEVATED WHITE BLOOD CELL COUNT, UNSPECIFIED (4) Shortness of breath Current Visit: Yes Status: Acute Assessment & Plan: Improving. Mobilize with PT. Code(s): R06.02 - SHORTNESS OF BREATH Telemedicine Encounter - Telemedicine Encounter Telemedicine Encounter: "The entirety of this encounter was performed via Telemedicine" This visit was performed using real-time audio and video connection between my location and thepatients locationwith the assistance of a surrogateat the patients location. Written or verbal consent was obtained from the patient/guardian to perform this visit usingsynchrEasy Icetelemedicine technology. Any patient questions regarding the telemedicine interaction were answered.
[2024-06-24] MEDS: DUONEB 0.5-3 MG/3 ml Neb IH SCH (01:03)
[2024-06-24 02:01] LABS: Absolute Neutrophil Ct (ANC) 11.24 x10^3/uL (1.56-6.13); BASOPHIL % 0.2 % (0.1-1.2); Basophil (Absolute #) 0.02 x10^3/uL (0.01-0.08); Eosinophil (Absolute #) 0 x10^3/uL (0.04-0.36); Hematocrit 44.8 % (34.1-44.9); Hemoglobin 13.8 g/dL (11.2-15.7); IMMATURE GRAN # 0.06 x10^3u/L (0.001-0.031); IMMATURE GRAN % 0.5 % (0.001-0.429); Lymphocyte (Absolute #) 0.37 x10^3/uL (1.18-3.74); Lymphocytes % 3.1 % (19.3-51.7); Mean Corpuscular Hemoglobin 28.3 pg (25.6-32.2); Mean Corpuscular Hgb Concent. 30.8 g/dL (32.2-35.5); Mean Platelet Volume 9.1 fL (9.4-12.3); Monocytes % 0.8 % (4.7-12.5); Neutrophil % 95.4 % (34.0-71.1); Platelet Count 312 x10^3/uL (182-369); Red Blood Count 4.87 x10^6/uL (3.93-5.22); Red Cell Distribution Width 12.9 % (11.7-14.4); White Blood Count 11.8 x10^3/uL (3.98-10.04)
[2024-06-24 02:15] LABS: Creatinine 1 0.66 mg/dL (0.52-1.04); EST GLOMERULAR FILTRATION RATE 94.9 ML/MIN; Potassium 4.1 mmol/L (3.5-5.1)
[2024-06-24 04:52] LABS: Slide Review 1 YES
[2024-06-24] MEDS ORDERED: solu-MEDROL ONE (05:45)
[2024-06-24 07:11] VITALS: RESP 16; TEMP 97.6
[2024-06-24] MEDS ORDERED: MEDICATION INTERVENTION MC SCH (07:30)
--- NOTE | 2024-06-24 08:35 | XRAY ---
Indication: Short of breath. Elevated d-dimer. Multiple contiguous axial images obtained through the chest using 80 cc Isovue 370 contrast and PE protocol. Comparison: November 22, 2022. Good opacification pulmonary arteries including lobar and segmental branches. No pulmonary embolus. Heart not enlarged. Aorta again mildly arteriosclerotic without aneurysm/dissection. No pathologic mediastinal/hilar lymphadenopathy. Lungs again demonstrate diffuse pulmonary emphysema. Previous posterior left upper lobe irregular density less conspicuous, probable fibrosis/scarring. No new pulmonary mass/nodule, infiltrate, consolidation, or effusion. Bony thorax intact again with osteopenia and mild degenerative changes throughout spine. Limited upper abdomen unremarkable. Impression: 1. Negative pulmonary embolus. No new/acute cardiopulmonary abnormalities. 2. Chronic findings including pulmonary emphysema with fibrosis/scarring, arteriosclerotic disease, and chronic bony findings.
--- NOTE | 2024-06-24 08:37 | XRAY ---
Indication: Pneumonia. Comparison: April 21, 2024 Portable chest unchanged again hyperinflated and clear. Heart not enlarged. Bony thorax intact again with osteopenia and degenerative changes. No new/acute findings.
[2024-06-24] MEDS ORDERED: ALBUTEROL SULFATE 2 MG PO SCH (10:00)
[2024-06-24] MEDS ORDERED: OMEPRAZOLE MAGNESIUM 10 MG PO SCH (10:00)
[2024-06-24] MEDS: Zithromax 500 MG/ 250 ML NaCl Premix 500 MG/250 ML IVPB IV SCH (10:22)
[2024-06-24] MEDS: Acidophilus TABLET PO SCH (10:24)
[2024-06-24] MEDS: Protonix 40MG Tablet PO SCH (10:24)
[2024-06-24] MEDS: ENOXAPARIN SODIUM SQ SCH (10:24)
[2024-06-24] MEDS: Mucinex 600MG ER Tabs PO SCH (10:24)
--- NOTE | 2024-06-24 11:17 | PCM.DS ---
Discharge Summary Date of Admission: 06/23/24 21:04 Date of Discharge: 06/24/24 Admitting Physician: KRISTEL MENA MD Primary Care Provider: ALEX LANG Allergies Allergies No Known Drug Allergies Allergy (Verified 06/23/24 16:57) Hospital Summary - Hospital Course Hospital Course: 06/24/24 is a 68 year old female with a history of COPD (follows with Dr. Hughes, and is on continuous 4 LPM O2). She presented to the hospital on 06/23 with dyspnea, shortness of breath, and cough which had been worsening over the course of the day. The cough has been productive of white sputum. She denied chest pain. In the ED, the patient had a negative CTA chest for PE and infiltrate, but was noted to have diminished breath sounds consistent with a COPD exacerbation. She was initially placed on an Oxymask at 4 LPM. This morning the patient's symptoms have improved after treatment initiation. She is on baseline O2 of 4lNC and she would like to go home. She no longer feels SOB and has been walking around the unit fine. - Vitals & Intake/Output Vital Signs: Vital Signs Temperature 97.6 F 06/24/24 07:11 Pulse Rate 93 H 06/24/24 07:11 Respiratory Rate 16 06/24/24 07:11 Blood Pressure 144/68 06/24/24 07:11 O2 Sat by Pulse Oximetry 96 06/24/24 07:11 Intake & Output: Intake & Output 06/21/24 06/22/24 06/23/24 06/24/24 11:59 11:59 11:59 11:59 Intake Total 200 Output Total 900 Balance -700 Weight 69.4 kg - Lab Result Diagrams: 06/24/24 02:00 06/24/24 02:00 Lab Results-Last 24 Hrs: Lab Results-Last 24 Hours 06/23/24 06/23/24 06/23/24 Range/Units 17:00 17:00 17:00 WBC 10.6 H (3.98-10.04) x10^3/uL RBC 5.03 (3.93-5.22) x10^6/uL Hgb 14.3 (11.2-15.7) g/dL Hct 46.3 H (34.1-44.9) % MCV 92.0 (79.4-94.8) fL MCH 28.4 (25.6-32.2) pg MCHC 30.9 L (32.2-35.5) g/dL RDW 12.8 (11.7-14.4) % Plt Count 357 (182-369) x10^3/uL MPV 9.4 (9.4-12.3) fL Gran % 81.4 H (34.0-71.1) % Immature Gran % (Auto) 0.5 H (0.001-0.429) % Nucleat RBC Rel Count 0.0 (0.00-0.2) % Eos # (Auto) 0.06 (0.04-0.36) x10^3/uL Immature Gran # (Auto) 0.05 H (0.001-0.031) x10^3u/L Absolute Lymphs (auto) 1.06 L (1.18-3.74) x10^3/uL Absolute Monos (auto) 0.72 (0.24-0.86) x10^3/uL Absolute Nucleated RBC 0.00 (0.00-0.012) x10^3u/L Lymphocytes % 10.0 L (19.3-51.7) % Monocytes % 6.8 (4.7-12.5) % Eosinophils % 0.6 L (0.7-5.8) % Basophils % 0.7 (0.1-1.2) % Absolute Granulocytes 8.62 H (1.56-6.13) x10^3/uL Basophils # 0.07 (0.01-0.08) x10^3/uL D-Dimer 0.82 H* (0.0-0.50) mg/L Puncture Site pCO2 (35-45) mmHg pO2 (75-100) mmHg Base Excess (-2.0-2.0) O2 Saturation (94-100) g/dF ABG pH (7.35-7.45) ABG HCO3 (22-28) ABG O2 Sat (Measured) (95-100) % Kana Test A-a Gradient a/A Ratio Hemoglobin Carboxyhemoglobin (0.0-6.9) % THgb Methemoglobin (1.4-1.5) % Temperature C POC O2 Flow Rate % Sodium 143 (135-145) mmol/L Potassium 4.9 (3.5-5.1) mmol/L Chloride 103 (98-107) mmol/L Carbon Dioxide 31 H (22-30) mmol/L Anion Gap 13.8 (5-15) MEQ/L BUN 20 H (7-17) mg/dL Creatinine 0.75 (0.52-1.04) mg/dL Estimated GFR 86.1 ML/MIN Glucose 138 H (74-106) mg/dL Hemoglobin A1c (4.5-6.0) % Calcium 10.0 (8.4-10.2) mg/dL Total Bilirubin 0.20 (0.2-1.3) mg/dL AST 31 (14-36) U/L ALT 33 (0-35) U/L Alkaline Phosphatase 83 (38-126) U/L Troponin I (0.000-0.033) ng/mL NT-Pro-B Natriuret Pep (<300) pg/mL Serum Total Protein 6.7 (6.3-8.2) g/dL Albumin 4.2 (3.5-5.0) g/dL Influenza Type A Ag (NEGATIVE) Influenza Type B Ag (NEGATIVE) RSV (PCR) (NEGATIVE) SARS-CoV-2 (PCR) (NEGATIVE) Slides for Path Review 06/23/24 06/23/24 06/23/24 Range/Units 17:00 17:18 17:42 WBC (3.98-10.04) x10^3/uL RBC (3.93-5.22) x10^6/uL Hgb (11.2-15.7) g/dL Hct (34.1-44.9) % MCV (79.4-94.8) fL MCH (25.6-32.2) pg MCHC (32.2-35.5) g/dL RDW (11.7-14.4) % Plt Count (182-369) x10^3/uL MPV (9.4-12.3) fL Gran % (34.0-71.1) % Immature Gran % (Auto) (0.001-0.429) % Nucleat RBC Rel Count (0.00-0.2) % Eos # (Auto) (0.04-0.36) x10^3/uL Immature Gran # (Auto) (0.001-0.031) x10^3u/L Absolute Lymphs (auto) (1.18-3.74) x10^3/uL Absolute Monos (auto) (0.24-0.86) x10^3/uL Absolute Nucleated RBC (0.00-0.012) x10^3u/L Lymphocytes % (19.3-51.7) % Monocytes % (4.7-12.5) % Eosinophils % (0.7-5.8) % Basophils % (0.1-1.2) % Absolute Granulocytes (1.56-6.13) x10^3/uL Basophils # (0.01-0.08) x10^3/uL D-Dimer (0.0-0.50) mg/L Puncture Site LEFT BRACHIAL pCO2 51 H (35-45) mmHg pO2 130 H* (75-100) mmHg Base Excess 7.9 H (-2.0-2.0) O2 Saturation 97.4 (94-100) g/dF ABG pH 7.43 (7.35-7.45) ABG HCO3 33.9 H* (22-28) ABG O2 Sat (Measured) 99.5 (95-100) % Kana Test NOT APPLICABLE A-a Gradient 63 a/A Ratio 0.67 Hemoglobin 14.4 Carboxyhemoglobin 0.7 (0.0-6.9) % THgb Methemoglobin 1.5 (1.4-1.5) % Temperature 37.0 C POC O2 Flow Rate 36 % Sodium (135-145) mmol/L Potassium 4.9 (3.5-5.1) mmol/L Chloride (98-107) mmol/L Carbon Dioxide (22-30) mmol/L Anion Gap (5-15) MEQ/L BUN (7-17) mg/dL Creatinine (0.52-1.04) mg/dL Estimated GFR ML/MIN Glucose (74-106) mg/dL Hemoglobin A1c (4.5-6.0) % Calcium (8.4-10.2) mg/dL Total Bilirubin (0.2-1.3) mg/dL AST (14-36) U/L ALT (0-35) U/L Alkaline Phosphatase (38-126) U/L Troponin I < 0.012 (0.000-0.033) ng/mL NT-Pro-B Natriuret Pep 57.8 (<300) pg/mL Serum Total Protein (6.3-8.2) g/dL Albumin (3.5-5.0) g/dL Influenza Type A Ag NEGATIVE (NEGATIVE) Influenza Type B Ag NEGATIVE (NEGATIVE) RSV (PCR) NEGATIVE (NEGATIVE) SARS-CoV-2 (PCR) NEGATIVE (NEGATIVE) Slides for Path Review 06/24/24 06/24/24 06/24/24 Range/Units 02:00 02:00 02:00 WBC 11.8 H (3.98-10.04) x10^3/uL RBC 4.87 (3.93-5.22) x10^6/uL Hgb 13.8 (11.2-15.7) g/dL Hct 44.8 (34.1-44.9) % MCV 92.0 (79.4-94.8) fL MCH 28.3 (25.6-32.2) pg MCHC 30.8 L (32.2-35.5) g/dL RDW 12.9 (11.7-14.4) % Plt Count 312 (182-369) x10^3/uL MPV 9.1 L (9.4-12.3) fL Gran % 95.4 H (34.0-71.1) % Immature Gran % (Auto) 0.5 H (0.001-0.429) % Nucleat RBC Rel Count 0.0 (0.00-0.2) % Eos # (Auto) 0 L (0.04-0.36) x10^3/uL Immature Gran # (Auto) 0.06 H (0.001-0.031) x10^3u/L Absolute Lymphs (auto) 0.37 L (1.18-3.74) x10^3/uL Absolute Monos (auto) 0.10 L (0.24-0.86) x10^3/uL Absolute Nucleated RBC 0.00 (0.00-0.012) x10^3u/L Lymphocytes % 3.1 L (19.3-51.7) % Monocytes % 0.8 L (4.7-12.5) % Eosinophils % 0.0 L (0.7-5.8) % Basophils % 0.2 (0.1-1.2) % Absolute Granulocytes 11.24 H (1.56-6.13) x10^3/uL Basophils # 0.02 (0.01-0.08) x10^3/uL D-Dimer (0.0-0.50) mg/L Puncture Site pCO2 (35-45) mmHg pO2 (75-100) mmHg Base Excess (-2.0-2.0) O2 Saturation (94-100) g/dF ABG pH (7.35-7.45) ABG HCO3 (22-28) ABG O2 Sat (Measured) (95-100) % Kana Test A-a Gradient a/A Ratio Hemoglobin Carboxyhemoglobin (0.0-6.9) % THgb Methemoglobin (1.4-1.5) % Temperature C POC O2 Flow Rate % Sodium 140 (135-145) mmol/L Potassium 4.1 (3.5-5.1) mmol/L Chloride 104 (98-107) mmol/L Carbon Dioxide 30 (22-30) mmol/L Anion Gap 10.0 (5-15) MEQ/L BUN 16 (7-17) mg/dL Creatinine 0.66 (0.52-1.04) mg/dL Estimated GFR 94.9 ML/MIN Glucose 169 H (74-106) mg/dL Hemoglobin A1c 5.72 (4.5-6.0) % Calcium 9.0 (8.4-10.2) mg/dL Total Bilirubin (0.2-1.3) mg/dL AST (14-36) U/L ALT (0-35) U/L Alkaline Phosphatase (38-126) U/L Troponin I (0.000-0.033) ng/mL NT-Pro-B Natriuret Pep (<300) pg/mL Serum Total Protein (6.3-8.2) g/dL Albumin (3.5-5.0) g/dL Influenza Type A Ag (NEGATIVE) Influenza Type B Ag (NEGATIVE) RSV (PCR) (NEGATIVE) SARS-CoV-2 (PCR) (NEGATIVE) Slides for Path Review YES - Radiology Exams Ordered Rad Exams-Entire Visit: Radiology Procedures Category Date Time Status CHEST 1 VIEW (PORTABLE) Stat Exams 06/23/24 17:12 Completed CHEST WITH CONTRAST [CT] Stat Exams 06/23/24 18:28 Completed - Procedures and Test Procedures and Tests throughout Hospitalization: Therapy Orders & Screens 06/23/24 21:33 RT Screen per Nursing Assess ONCE Comment: Protocol Order Physician Instructions: Greater than 3 points order RT Admission Screen Reason For Exam: Triggered on Admission Diagnosis: COPD exacerbation, hypoxia Diagnosis: COPD exacerbation, hypoxia Pneumonia: No Home O2: Yes Asthma: No CHF: No Home CPAP/BIPAP: No Home Nebs/MDI: Yes Total Points: 10 06/23/24 22:11 Oxygen Nasal Cannula 4 lpm Comment: Diagnosis: COPD exacerbation, hypoxia 06/23/24 22:12 Incentive Spirometry UD Comment: Diagnosis: COPD exacerbation, hypoxia 06/23/24 22:36 PT Eval & Treat (MD Order) ONCE Reason for Eval:: ambulatory oxygen requirement assessment Diagnosis: COPD exacerbation, hypoxia Discharge Exam General Appearance: no apparent distress, alert Neurologic Exam: alert, oriented x 3, cooperative, normal mood/affect, nml cerebellar function, sensation nml, No motor deficits Eye Exam: PERRL, EOMI, eyes nml inspection Ears, Nose, Throat Exam: normal ENT inspection, pharynx normal, moist mucous membranes Neck Exam: normal inspection, non-tender, supple, full range of motion Respiratory Exam: normal breath sounds, lungs clear, No respiratory distress Cardiovascular Exam: regular rate/rhythm, normal heart sounds Gastrointestinal/Abdomen Exam: soft, No tenderness, No mass Pelvic Exam: deferred Rectal Exam: deferred Back Exam: normal inspection, normal range of motion, No CVA tenderness, No vertebral tenderness Extremity Exam: normal inspection, normal range of motion Skin Exam: normal color, warm, dry Final Diagnosis/Problem List - Final Discharge Diagnosis/Problem (1) COPD exacerbation Current Visit: Yes Status: Acute Assessment & Plan: - IV steroids, IV antibiotics, nebs. - Continue O2 support. - On baseline 4lNC Code(s): J44.1 - CHRONIC OBSTRUCTIVE PULMONARY DISEASE W (ACUTE) EXACERBATION (2) Cough Current Visit: Yes Status: Acute Assessment & Plan: - Antibiotics and Mucinex. Code(s): R05.9 - COUGH, UNSPECIFIED (3) Leukocytosis Current Visit: Yes Status: Acute Assessment & Plan: - WBC 11.8 - 2:2 COPD exacerbation Code(s): D72.829 - ELEVATED WHITE BLOOD CELL COUNT, UNSPECIFIED (4) Shortness of breath Current Visit: Yes Status: Resolved Assessment & Plan: - 2;2 COPD exacerbation and warm weather - see COPD plan - resolved Code(s): R06.02 - SHORTNESS OF BREATH - Discharge Discharge Date: 06/24/24 Disposition: Home, Self-Care Condition: Stable Prescriptions: New Guaifenesin 600 mg ER [Mucinex 600MG ER Tabs] 600 mg PO BID 10 Days #20 tablet Continue Omeprazole Magnesium [Prilosec] 20 mg PO DAILY Prednisone 20 mg [Deltasone 20 mg] 20 mg PO DAILY Albuterol 2.5 mg/3 ml Neb [Proventil 2.5 mg/3 ml Neb] 2.5 mg IH BID Cetirizine HCl [Zyrtec] 10 mg PO HS Albuterol Sulfate 2 mg PO BID Instructions: COPD exacerbation - Discharge instructions Follow up with: ALEX LANG MD [Primary Care Provider] - 07/01/24 10:30 am ([facility])
[2024-06-24 12:00] VITALS: BP 137/82; PULSE 103; O2SAT 95
[2024-06-24] MEDS ORDERED: Advair Hfa 230/21 Mcg COMMON CANISTER IH SCH (19:00)
[2024-06-24] MEDS ORDERED: NON-FORMULARY ITEM (Cetirizine Hcl [Zyrtec] 10 MG Tablet) PO SCH (22:00)
[2024-06-24] MEDS ORDERED: ROCEPHIN 1 GM / 100 ML NaCl 1 GM/100 ML IVPB IV SCH (22:00)
== END 2024-06-24 12:08 | disposition home or self-care (01) ==
LOC: ED 16:56 → MED SURG 21:04
PROVIDERS: ADMIT Internal Medicine; ATTEND Internal Medicine
DX: J44.1 Chronic obstructive pulmonary disease with (acute) exacerbation (principal); R05.9 Cough, unspecified; D72.829 Elevated white blood cell count, unspecified; R06.02 Shortness of breath; Z99.81 Dependence on supplemental oxygen; Z79.899 Other long term (current) drug therapy
CPT/HCPCS: 0241U; 36000; 36415; 36600; 71045; 71260; 80048; 80053; 82375; 82803; 83036; 83880; 84484; 85025; 85379; 87040; 93005; 93041; 94640; 94760; 94762; 96360; 96365; 96367; 96374; 99285; G0378; Q3014; J0456; J0696; J1650; J2919; A9270-GY